=== PATIENT | male | born 1985 | race Caucasian/White ===

== ENCOUNTER 2016-10-23 11:30 | Emergency (ER) | payer SELFPAY ==
[2016-10-23 11:54] VITALS: RESP 16
[2016-10-23] MEDS ORDERED: ACETAMINOPHEN TAB 500 MG TAB PO STA (12:06)
--- NOTE | 2016-10-23 12:07 | ED ---
Fever HPI - General Chief Complaint: Fever Stated Complaint: Fever since Saturday Time Seen by Provider: 10/23/16 11:52 Source: patient, RN notes reviewed Mode of arrival: ambulatory Limitations: no limitations - History of Present Illness Initial Comments: 31-year-old male presents to the emergency department with a chief complaint of fever. Patient digitalis and Saturday. Patient states T-max about 102. Patient states taking DayQuil Motrin but he just feels very crampy. Patient denies influenza vaccination. Patient did have a small cough with this. Patient states he was concerned due to the continued fevers without that he should be seen. Patient denies any recent shortness of breath, chest pain, back pain, abdominal pain, nausea vomiting, numbness or tingling, dysuria or hematuria, constipation or diarrhea, headaches or visual changes, or any other current symptoms. - Related Data Home Medications Medication Instructions Recorded Confirmed Ibuprofen [Motrin] 800 mg PO Q8HR PRN 10/23/16 10/23/16 Allergies Allergy/AdvReac Type Severity Reaction Status Date / Time No Known Allergies Allergy Verified 10/23/16 12:04 Review of Systems ROS Statement: Those systems with pertinent positive or pertinent negative responses have been documented in the HPI. ROS Other: All systems not noted in ROS Statement are negative. Past Medical History Past Medical History: No Reported History Additional Past Medical History / Comment(s): back pain History of Any Multi-Drug Resistant Organisms: None Reported Past Surgical History: No Surgical Hx Reported Past Psychological History: No Psychological Hx Reported Smoking Status: Never smoker Past Alcohol Use History: Occasional Past Drug Use History: None Reported General Exam - General Exam Comments Initial Comments: General exam: Alert, active, comfortable in no apparent distress Head: Normocephalic Eyes: Normal reaction of pupils, equal size, normal range of extraocular motion Ears: normal external ear canals, pink tympanic membranes with normal cone of light Nose: clear with pink turbinates Throat: no erythema or exudates with normal sized tonsils Neck: no masses, no nuchal rigidity Chest: no chest wall deformity Lungs: equal air entry with no crackles or wheeze CVS: S1 and S2 normal with no audible mumurs, regular rhythm Abdomen: no hepatosplenomegaly, normal bowel sounds, no guarding or rigidity Spine: no scoliosis or deformity Skin: no rashes Neurological: No focal deficits, tone is normal in all 4 extremities Limitations: no limitations Course Vital Signs 10/23/16 11:51 Temperature 98.6 F Pulse Rate 89 Respiratory 16 Rate Blood Pressure 124/76 O2 Sat by Pulse 96 Oximetry Medical Decision Making - Medical Decision Making 31-year-old male presents emergency apartment with chief complaint of fever. This time patient's influenza is negative. As well as chest x-ray. Patient has been afebrile here. Patient has no other complaints. This time we discussed most likely coming from a viral like syndrome. We discussed treatment plans and follow-up. We discussed. The patient's questions. He stated understood all questions have been answered. He will be discharged home. - Lab Data Lab Results 10/23/16 Range/Units 12:20 Influenza Type A RNA Not Detected (Not Detectd) Influenza Type B (PCR) Not Detected (Not Detectd) - Radiology Data Radiology results: report reviewed, image reviewed Disposition Clinical Impression: Viral syndrome Disposition: TRANSFER TO PSYCH HOSP/UNIT Condition: Stable Instructions: Fever in Adults (ED) Additional Instructions: Please use medication as discussed. Please follow up with family doctor if symptoms have not improved over the next two days. Please return to the emergency room if your symptoms increase or worsen or for any other concerns. Referrals: None,Stated [Primary Care Provider] - 1-2 days Robert Leon MD [STAFF PHYSICIAN] - 1-2 days Time of Disposition: 13:25
--- NOTE | 2016-10-23 12:23 | XR ---
EXAMINATION TYPE: XR chest 2V DATE OF EXAM: 10/23/2016 12:15 PM COMPARISON: 08/30/2016 HISTORY: Fever and cough FINDINGS: The lungs are clear and there is no pneumothorax, pleural effusion, or focal pneumonia. Heart size s table. IMPRESSION: 1. No acute process.
[2016-10-23 13:31] VITALS: BP 119/76; PULSE 78; TEMP 98.4
--- NOTE | 2016-10-23 13:31 | ED ---
Medical Decision Making - Lab Data Lab Results 10/23/16 Range/Units 12:20 Influenza Type A RNA Not Detected (Not Detectd) Influenza Type B (PCR) Not Detected (Not Detectd) Disposition Clinical Impression: Viral syndrome Disposition: HOME SELF-CARE Condition: Stable Instructions: Fever in Adults (ED) Additional Instructions: Please use medication as discussed. Please follow up with family doctor if symptoms have not improved over the next two days. Please return to the emergency room if your symptoms increase or worsen or for any other concerns. Referrals: Robert Leon MD [STAFF PHYSICIAN] - 1-2 days None,Stated [Primary Care Provider] - 1-2 days
== END 2016-10-23 13:31 | disposition home or self-care (01) ==
LOC: EC 11:30
DX: B34.9 Viral infection, unspecified (principal)
CPT/HCPCS: 71020; 87502; 99283

== ENCOUNTER 2017-08-16 14:19 | Emergency (ER) | payer OTHER ==
[2017-08-16 14:25] VITALS: BP 134/77; PULSE 82; RESP 18; TEMP 98.4
--- NOTE | 2017-08-16 15:19 | ED ---
General Adult HPI - General Chief complaint: Recheck/Abnormal Lab/Rx Stated complaint: Abscess and bleeding on rear Time Seen by Provider: 08/16/17 14:37 Source: patient, RN notes reviewed Mode of arrival: ambulatory Limitations: no limitations - History of Present Illness Initial comments: Patient 32-year-old male who presents emergency room today with a hemorrhoid. He does admit that his noticed some pain over the last few days with a bump. states that he began bleeding today. He does admit that he was at work strength are normal with a bowel movement this started. He denies any other complaints or symptoms. Patient denies any recent fever, chills, shortness of breath, chest pain, back pain, abdominal pain, nausea or vomiting, numbness or tingling, dysuria or hematuria, constipation or diarrhea, headaches or visual changes, or any other complaints. - Related Data Previous Rx's Medication Instructions Recorded Docusate [Colace] 100 mg PO DAILY #14 capsule 08/16/17 Hydrocortisone Pr Cream 1 applic RECTAL TID #1 tube 08/16/17 [Proctosol-Hc 2.5%] Allergies Allergy/AdvReac Type Severity Reaction Status Date / Time No Known Allergies Allergy Verified 08/16/17 14:33 Review of Systems ROS Statement: Those systems with pertinent positive or pertinent negative responses have been documented in the HPI. ROS Other: All systems not noted in ROS Statement are negative. Past Medical History Past Medical History: No Reported History Additional Past Medical History / Comment(s): back pain History of Any Multi-Drug Resistant Organisms: None Reported Past Surgical History: No Surgical Hx Reported Past Psychological History: No Psychological Hx Reported Smoking Status: Never smoker Past Alcohol Use History: Occasional Past Drug Use History: None Reported General Exam - General Exam Comments Initial Comments: General: The patient is awake and alert, in no distress, and does not appear acutely ill. Eye: Pupils are equal, round and reactive to light, extra-ocular movements are intact. No nystagmus. There is normal conjunctiva bilaterally. No signs of icterus. Ears, nose, mouth and throat: There are moist mucous membranes and no oral lesions. Neck: The neck is supple, there is no tenderness or JVD. Cardiovascular: There is a regular rate and rhythm. No murmur, rub or gallop is appreciated. Respiratory: Lungs are clear to auscultation, respirations are non-labored, breath sounds are equal. No wheezes, stridor, rales, or rhonchi. Musculoskeletal: Normal ROM, no tenderness. Strength 5/5. Sensation intact. Pulses equal bilaterally 2+. Neurological: A&O x 3. CN II-XII intact, There are no obvious motor or sensory deficits. Coordination appears grossly intact. Speech is normal. Skin: Skin is warm and dry and no rashes or lesions are noted. Psychiatric: Cooperative, appropriate mood & affect, normal judgment. : Patient does have a hemorrhoid located at the metacarpal position. There is some mild bleeding. Limitations: no limitations Course Vital Signs 08/16/17 14:23 Temperature 98.4 F Pulse Rate 82 Respiratory 18 Rate Blood Pressure 134/77 O2 Sat by Pulse 96 Oximetry Medical Decision Making - Medical Decision Making patient was given medication for her hemorrhoid also was a stool softener advised to increase oral fluids follow-up with surgeon. Disposition Clinical Impression: Hemorrhoid Disposition: HOME SELF-CARE Condition: Good Instructions: Hemorrhoids (ED) Additional Instructions: Please use medication as discussed. Please follow-up with surgeon/family doctor in the next 2 days of symptoms have not improved. Please return to emergency room if the symptoms increase or worsen or for any other concerns. Prescriptions: Docusate [Colace] 100 mg PO DAILY #14 capsule Hydrocortisone Pr Cream [Proctosol-Hc 2.5%] 1 applic RECTAL TID #1 tube Referrals: None,Stated [Primary Care Provider] - 1-2 days Raffaele Hanson DO [Doctor of Osteopathic Medicine] - 1-2 days Time of Disposition: 15:11
== END 2017-08-16 15:43 | disposition home or self-care (01) ==
LOC: EC 14:19
DX: K64.9 Unspecified hemorrhoids (principal)
CPT/HCPCS: 99282

== ENCOUNTER 2019-02-08 06:37 | Emergency (ER) | payer OTHER ==
[2019-02-08 06:51] VITALS: BP 122/79; PULSE 108; RESP 20; TEMP 97.9
[2019-02-08] MEDS ORDERED: KETOROLAC 60 MG/2 ML VIAL IM STA (07:15)
--- NOTE | 2019-02-08 07:20 | ED ---
Back Pain HPI - General Chief Complaint: Back Pain/Injury Stated Complaint: back pain Time Seen by Provider: 02/08/19 07:00 Source: patient, RN notes reviewed Mode of arrival: ambulatory Limitations: no limitations - History of Present Illness Initial Comments: 33-year-old male presents emergency Department chief complaint of low back pain. Patient states that started yesterday morning. Patient states that he was wrestling around with his nephew the day prior when he pulled hard on his right leg. Patient states he has some discomfort in his low back at the time but states he awoke yesterday with worsening pain. Patient states it's worse with movement better when he is laying flat or has his knees pulled up. He denies any bowel bladder incontinence or retention. Denies any abdominal pain. Patient states he has had problems with his back in the past. He's had imaging with no acute findings. Patient states she's been taken Tylenol Motrin with no relief. - Related Data Home Medications Medication Instructions Recorded Confirmed Cyclobenzaprine [Flexeril] 10 mg PO DAILY PRN 09/03/17 09/03/17 Ibuprofen [Motrin] 800 mg PO DAILY PRN 09/03/17 09/03/17 Previous Rx's Medication Instructions Recorded Acetaminophen-Codeine 300-30mg 1 tab PO Q4H PRN #20 tablet 09/03/17 [Tylenol #3] Methocarbamol [Robaxin] 500 mg PO TID PRN #15 tab 09/03/17 predniSONE 50 mg PO DAILY #5 tab 09/03/17 HYDROcodone/APAP 7.5-325MG [[place] 1 tab PO Q6HR PRN 3 Days #12 tab 02/08/19 7.5-325] Ibuprofen [Motrin] 600 mg PO Q8HR PRN #30 tab 02/08/19 Methocarbamol [Robaxin] 500 mg PO TID PRN #15 tab 02/08/19 predniSONE 50 mg PO DAILY #5 tab 02/08/19 Allergies Allergy/AdvReac Type Severity Reaction Status Date / Time No Known Allergies Allergy Verified 02/08/19 06:51 Review of Systems ROS Statement: Those systems with pertinent positive or pertinent negative responses have been documented in the HPI. ROS Other: All systems not noted in ROS Statement are negative. Past Medical History Past Medical History: No Reported History Additional Past Medical History / Comment(s): back pain History of Any Multi-Drug Resistant Organisms: None Reported Past Surgical History: No Surgical Hx Reported Past Psychological History: No Psychological Hx Reported Smoking Status: Never smoker Past Alcohol Use History: Occasional Past Drug Use History: None Reported General Exam Limitations: no limitations General appearance: alert, in no apparent distress Neck exam: Present: normal inspection, full ROM. Absent: tenderness, meningismus, lymphadenopathy Respiratory exam: Present: normal lung sounds bilaterally. Absent: respiratory distress, wheezes, rales, rhonchi, stridor Cardiovascular Exam: Present: regular rate, normal rhythm, normal heart sounds. Absent: systolic murmur, diastolic murmur, rubs, gallop, clicks GI/Abdominal exam: Present: soft, normal bowel sounds. Absent: distended, tenderness, guarding, rebound, rigid Extremities exam: Present: other (Lower extremity pulses equal bilaterally, equal color equal warmth strength is equal but 4/5 secondary to pain in his back) Back exam: Present: full ROM (Moderate discomfort), tenderness (Tenderness right lumbar region), muscle spasm, paraspinal tenderness, other (Pain with right straight leg raise). Absent: vertebral tenderness Neurological exam: Present: reflexes normal. Absent: motor sensory deficit Skin exam: Present: warm, dry, intact, normal color. Absent: rash Course Vital Signs 02/08/19 06:47 Temperature 97.9 F Pulse Rate 108 H Respiratory 20 Rate Blood Pressure 122/79 O2 Sat by Pulse 97 Oximetry Medical Decision Making - Medical Decision Making 33-year-old male presented for low back pain. Patient is lumbar strain, lumbar radiculopathy. Patient we treated the meds, muscle relaxers and anti- inflammatories. Patient will follow-up with PCP and return for any worsening symptoms. Patient has no red flag symptoms. Disposition Clinical Impression: Strain of lumbar region, Lumbar radiculopathy Disposition: HOME SELF-CARE Condition: Stable Instructions (If sedation given, give patient instructions): Acute Low Back Pain (ED) Additional Instructions: Please return to the Emergency Department if symptoms worsen or any other concerns. Prescriptions: Ibuprofen [Motrin] 600 mg PO Q8HR PRN #30 tab PRN Reason: Pain HYDROcodone/APAP 7.5-325MG [[place] 7.5-325] 1 tab PO Q6HR PRN 3 Days #12 tab PRN Reason: Pain predniSONE 50 mg PO DAILY #5 tab Methocarbamol [Robaxin] 500 mg PO TID PRN #15 tab PRN Reason: muscle spasms Is patient prescribed a controlled substance at d/c from ED?: Yes When asked, does pt state using other controlled substances?: No If prescribed controlled substance>3 days was MAPS reviewed?: Prescribed <3 Days If opioid is for acute pain is fill amount 7 days or less?: Yes If Rx opioid, was Start Talking consent form obtained?: Yes Referrals: None,Stated [Primary Care Provider] - 1-2 days Tanmay Middleton, [Doctor of Osteopathic Medicine] - 1-2 days Time of Disposition: 07:20
== END 2019-02-08 07:30 | disposition home or self-care (01) ==
LOC: EC 06:37
DX: S39.012A Strain of muscle, fascia and tendon of lower back, initial encounter (principal); M54.16 Radiculopathy, lumbar region; X58.XXXA Exposure to other specified factors, initial encounter; Y93.72 Activity, wrestling
CPT/HCPCS: 99283; 96372; J1885

== ENCOUNTER → 2021-11-02 | Outpatient (CLI) | payer OTHER | END | disposition home or self-care (01) | LOC: LABWHC1 11:11 | PROVIDERS: ATTEND Family Medicine | DX: R03.0 Elevated blood-pressure reading, without diagnosis of hypertension (principal) | CPT/HCPCS: 36415; 93005 ==

== ENCOUNTER → 2021-12-01 | Outpatient (CLI) | payer OTHER ==
--- NOTE | 2021-12-01 11:32 | US ---
EXAMINATION TYPE: US carotid duplex BILAT DATE OF EXAM: 12/01/2021 COMPARISON: NONE CLINICAL HISTORY: R42 dizziness. Dizziness and left shoulder/neck pain when bends over or pressure is placed on abdomen, or when patient experiences shortness of breath. Patient also had dizziness when moved upright from supine position from US scan today. Patient stated he vapes and has mildly elevate d blood pressure. EXAM MEASUREMENTS: RIGHT: Peak Systolic Velocity (PSV) cm/sec ----- Right CCA: 79.8 ----- Right ICA: 91.9 ----- Right ECA: 96.0 ICA/CCA ratio: 1.2 RIGHT: End Diastole cm/sec ----- Right CCA: 19.3 ----- Right ICA: 44.6 ----- Right ECA: 20.6 LEFT: Peak Systolic Velocity (PSV) cm/sec ----- Left CCA: 97.8 ----- Left ICA: 88.6 ----- Left ECA: 97.9 ICA/CCA ratio: 0.9 LEFT: End Diastole cm/sec ----- Left CCA: 30.5 ----- Left ICA: 42.4 ----- Left ECA: 27.2 VERTEBRALS (direction of flow): Right Vertebral: Antegrade Left Vertebral: Antegrade Rhythm: Normal Mild intimal wall thickening is noted at bilateral carotid bifurcation, but PSV is wnl bilaterally. IMPRESSION: No hemodynamically significant stenosis in either internal carotid artery. Criteria for Assigning % of Stenosis / Diameter reduction (Estimation based on the indirect measurements of the internal carotid artery velocities (ICA PSV). 1. Normal (no stenosis)=ICA PSV < 125 cm/s: ratio < 2.0: ICA EDV<40 cm/s. 2. Less than 50% stenosis=ICA PSV < 125 cm/s: ratio < 2.0: ICA EDV<40 cm/s. 3. 50 to 69% stenosis=ICA PSV of 125 to 230 cm/s: ration 2.0 ? 4.0: ICA EDV 40-100 cm/s. 4. Greater than 70% stenosis to near occlusion= ICA PSV > 230 cm/s: ratio > 4.0: ICA EDV > 100 cm/s. 5. Near occlusion= ICA PSV velocities may be low or undetectable: variable ratio and ICA EDV. 6. Total occlusion=unable to detect flow.
== END | disposition home or self-care (01) ==
LOC: RADUSWWP 10:34
PROVIDERS: ATTEND Family Medicine
DX: R42 Dizziness and giddiness (principal); R06.02 Shortness of breath
CPT/HCPCS: 93880

== ENCOUNTER → 2021-12-05 | Outpatient (CLI) | payer OTHER ==
--- NOTE | 2021-12-05 10:57 | ECHOF ---
Referral Reason:I10 Essential hypertension MEASUREMENTS -------- HEIGHT: 180.3 cm WEIGHT: 108.0 kg BP: RVIDd: 2.1 cm (< 3.3) IVSd: 1.1 cm (0.6 - 1.1) LVIDd: 3.9 cm (3.9 - 5.3) LVPWd: 1.4 cm (0.6 - 1.1) IVSs: 1.9 cm LVIDs: 2.6 cm LVPWs: 1.6 cm LAESV Index (A-L): 19.30 ml/m Ao Diam: 3.4 cm (2.0 - 3.7) AV Cusp: 1.9 cm (1.5 - 2.6) LA Diam: 3.6 cm (2.7 - 3.8) MV EXCURSION: 19.436 mm (> 18.000) MV EF SLOPE: 145 mm/s (70 - 150) EPSS: 0.5 cm MV E Gopi: 0.79 m/s MV DecT: 223 ms MV A Gopi: 0.63 m/s MV E/A Ratio: 1.26 RAP: 5.00 mmHg RVSP: 28.88 mmHg FINDINGS -------- This was a technically adequate study. The left ventricular size is normal. There is mild concentric left ventricular hypertrophy. Overa ll left ventricular systolic function is normal with, an EF between 55 - 60 %. The diastolic fillin g pattern is normal for the age of the patient 7.22. The right ventricle is normal in size. The left atrial size is normal. Normal LA size by volume 22+/-6 ml/m2. The right atrial size is normal. The aortic valve is trileaflet and appears structurally normal. The mitral valve is normal. There is trace mitral regurgitation. The tricuspid valve appears structurally normal. Trace tricuspid regurgitation present. Right jaron tricular systolic pressure is normal at < 35 mmHg. There is no pulmonic regurgitation present. The aortic root size is normal. Normal inferior vena cava with normal inspiratory collapse consistent with estimated right atrial pre ssure of 5 mmHg. There is no pericardial effusion. CONCLUSIONS -------- 1. The left ventricular size is normal. 2. There is mild concentric left ventricular hypertrophy. 3. Overall left ventricular systolic function is normal with, an EF between 55 - 60 %. 4. The diastolic filling pattern is normal for the age of the patient 7.22 5. There is trace mitral regurgitation. 6. Trace tricuspid regurgitation present. 7. There is no pericardial effusion. HAND ICER: Whitney Philippe RDCS
== END | disposition home or self-care (01) ==
LOC: RADECHMAIN 08:29
PROVIDERS: ATTEND Family Medicine
DX: I11.9 Hypertensive heart disease without heart failure (principal); I35.8 Other nonrheumatic aortic valve disorders
CPT/HCPCS: 93306

== ENCOUNTER → 2021-12-28 | Outpatient (CLI) | payer OTHER ==
--- NOTE | 2021-12-28 13:26 | P.STRESS ---
- Stress Test Note Stress Test Results/Findings: Exam Performed: stress test Exam Date: 12/28/21 Reason for Exam: Chest Pain Height: 5 ft 11 in Weight: 108.409 kg Protocol: linette Stage: 4 Duration of Exercise: 9:50 Resting Heart Rate: 64 Resting Blood Pressure: 136/96 Maximum Achieved Heart Rate: 157 Maximum Achieved Blood Pressure: 182/68 85% PMHR: 156 100% PMHR: 184 METS: 11.8 Technologist Comment: Stress Test Results/Findings: Patient underwent exercise stress EKG with a Linette protocol treadmill stress test. Patient exercised into Stage 4 for a total of 9 minutes and 50 seconds reaching a total of 11.8 METS. Patient's maximum heart rate was 157 which represented 85% age-predicted maximum heart rate. Stress EKG findings: At baseline patient's EKG showed normal sinus rhythm, normal axis, T-wave inversion in lead 3 which can be normal variant. At peak exercise, EKG showed no significant change from baseline. Conclusions: 1. Normal EKG response to exercise without evidence of inducible ischemia. 2. Good exercise capacity.
== END | disposition home or self-care (01) ==
LOC: RADNMMAIN 08:32
PROVIDERS: ATTEND Family Medicine
DX: I10 Essential (primary) hypertension (principal)
CPT/HCPCS: 93017

== ENCOUNTER 2022-03-20 02:58 | Emergency (ER) | payer OTHER ==
[2022-03-20 03:06] VITALS: BP 134/95; PULSE 80; RESP 20; TEMP 98.9
--- NOTE | 2022-03-20 04:16 | XR ---
EXAM: XR Abdomen, 2 Views CLINICAL HISTORY: ITS.REASON XR Reason: constipation abdominal pain TECHNIQUE: 2 frontal views of the abdomen and pelvis. COMPARISON: No relevant prior studies available. FINDINGS: Intraperitoneal space: No free air. Gastrointestinal tract: Unremarkable. No dilation. Bones/joints: Unremarkable. IMPRESSION: No acute findings in the abdomen or pelvis.
== END 2022-03-20 04:57 | disposition left against medical advice (07) ==
LOC: EC 02:58
DX: Z53.21 Procedure and treatment not carried out due to patient leaving prior to being seen by health care provider (principal); K59.00 Constipation, unspecified
CPT/HCPCS: 74018; 99499

== ENCOUNTER → 2022-04-19 | Outpatient (CLI) | payer OTHER ==
[2022-04-19 19:14] LABS: Hepatitis A Antibody IgM Nonreactive (Nonreactive); Hepatitis B Core IgM Nonreactive (Nonreactive); Hepatitis B Surface Antigen Nonreactive (Nonreactive); Hepatitis C IgG Antibody Nonreactive (Nonreactive)
[2022-04-20 02:42] LABS: HIV 2 AB Non-Reactive (Non-Reactive); HIV AB P24 Non-Reactive (Non-Reactive); HIV P24 AG Non-Reactive (Non-Reactive)
== END | disposition home or self-care (01) ==
LOC: LABWHC1 12:58
PROVIDERS: ATTEND Family Medicine
DX: Z11.3 Encounter for screening for infections with a predominantly sexual mode of transmission (principal)
CPT/HCPCS: 36415; 80074; 86592; 87390

== ENCOUNTER 2023-11-02 17:45 | Emergency (ER) | payer OTHER ==
[2023-11-02 18:20] VITALS: TEMP 98.1
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
[2023-11-02] MEDS: ONDANSETRON ODT 4 MG TAB PO STA (18:53)
[2023-11-02] MEDS: ACETAMINOPHEN TAB 500 MG TAB PO STA (18:53)
[2023-11-02] MEDS: IBUPROFEN 800 MG TAB PO STA (18:53)
[2023-11-02 20:08] VITALS: BP 131/86; PULSE 78; RESP 18
== END 2023-11-02 20:07 | disposition home or self-care (01) ==
LOC: EC 17:45
DX: Z04.3 Encounter for examination and observation following other accident (principal); F17.290 Nicotine dependence, other tobacco product, uncomplicated; Z86.59 Personal history of other mental and behavioral disorders; Z91.012 Allergy to eggs; V89.2XXA Person injured in unspecified motor-vehicle accident, traffic, initial encounter; Y92.411 Interstate highway as the place of occurrence of the external cause
CPT/HCPCS: 99284